=== PATIENT | female | born 1995 | race Caucasian/White ===

== ENCOUNTER 2017-05-16 03:52 | Emergency (ER) | payer BC, OTHER ==
[2017-05-16 04:00] VITALS: BP 126/87; PULSE 100; RESP 18; TEMP 98.2; O2SAT 94
--- NOTE | 2017-05-16 04:28 | EDPHY ---
H & P Stated Complaint: possible inhaled glass particle Time Seen by Provider: 05/16/17 04:00 HPI/ROS: Chief Complaint: Possibly inhaled foreign body HPI: 21-year-old woman states that she was smoking marijuana with her bong or earlier this morning. Patient states that she has a broken piece of glass that normally since the bottom of her bong. While she was smoking she did there is sensation is something in the back of her throat noted felt a scratchiness going down in her upper chest. She did see the usual piece of glass but is not sure if a small piece may have come off and she may have inhaled it. She has says that since that time when she breathes he sometimes feels the sensation of something moving from the center of her chest up into the back of her throat and then back down again. She has not have any pain. She has not have any cough. She has not have any hemoptysis. No nausea or vomiting. No pain. ROS: 10 point Review of Systems is negative except as noted in the HPI. PMH: Denies Social History: No smoking, occasional alcohol, occasional marijuana Family History: non-contributory Physical Exam: Gen: Awake, Alert, No Distress HEENT: Nose: no rhinorrhea Eyes: PERRLA, EOMI Mouth: Moist mucosa , normal oropharynx Neck: Supple, no JVD Chest: nontender, lungs clear to auscultation Heart: S1, S2 normal, no murmur Abd: Soft, non-tender, no guarding Back: no CVA tenderness, no midline tenderness Ext: no edema, non-tender Skin: no rash Neuro: CN II-XII intact, Sensation grossly intact, Strength 5/5 in bilateral upper and lower extremities - Personal History LMP (Females 10-55): IUD In Place Current Tetanus/Diphtheria Vaccine: Yes Current Tetanus Diphtheria and Acellular Pertussis (TDAP): Yes - Medical/Surgical History Hx Asthma: No Hx Chronic Respiratory Disease: No Hx Diabetes: No Hx Cardiac Disease: No Hx Renal Disease: No Hx Cirrhosis: No Hx Alcoholism: No Hx HIV/AIDS: No Hx Splenectomy or Spleen Trauma: No Other PMH: HERNIA, CONCUSSION X3 - Social History Smoking Status: Current some day smoker Constitutional: Initial Vital Signs Temperature (C) 36.8 C 05/16/17 03:56 Heart Rate 100 02/08/18 03:56 Respiratory Rate 18 05/16/17 03:56 Blood Pressure 126/87 H 05/16/17 03:56 O2 Sat (%) 94 05/16/17 03:56 O2 Delivery Mode Room Air Allergies/Adverse Reactions: Sulfa (Sulfonamide Antibiotics) Allergy (Verified 07/16/14 03:23) Home Medications: Medication Instructions Recorded Adderall 20 mg (RX) 07/16/14 Medical Decision Making ED Course/Re-evaluation: 21-year-old woman who believes she may have inhaled a glass foreign body will smoking or bone. She has not had any cough or hemoptysis. She is currently symptom free. States she is occasionally get the sensation of something moving from behind her sternum up to the back of her throat and back down again. I explained that this is unlikely a foreign object does it would not likely past above and below the vocal cords and if she had aspirated foreign body it would of remain lodged at the base of her lungs. I do not feel chest x-ray is going to be particularly useful at this time as if she has an held something it would be so small as not to be visible in the normal lung joyce. Plan will be to discharge her with a referral for pulmonology if she continues to have any symptoms. She started developing hemoptysis, worsening cough, fevers, chills, or any other concerns she will return here otherwise follow up with pulmonology for any other complaints. Departure - Departure Disposition: Home, Routine, Self-Care Clinical Impression: Throat pain Condition: Good Instructions: Foreign Body Ingestion (ED) Additional Instructions: Follow up with a site safety coordinator if you have worsening cough, blood-tinged sputum , fevers, chills, worsening productive cough, or any other concerns. Referrals: Yesica Nash MD [Primary Care Provider] - As per Instructions Sunil Duron MD [Medical Doctor] - As per Instructions
== END 2017-05-16 04:32 | disposition home or self-care (01) ==
DX: R07.0 Pain in throat (principal); F17.200 Nicotine dependence, unspecified, uncomplicated

== ENCOUNTER 2017-05-17 14:17 | Emergency (ER) | payer BC ==
[2017-05-17 14:22] VITALS: TEMP 98.2
--- NOTE | 2017-05-17 15:25 | EDPHY ---
H & P Time Seen by Provider: 05/17/17 15:12 HPI/ROS: HPI Foreign body in throat. 21-year-old female by private vehicle. She is with her friend. She reports that she was smoking marijuana through a Bong 2 nights ago. She reports that this Bong had a small piece of glass that was partially attached to the base. She reports that when she inhaled, she thinks that she inhaled this small piece of glass and it is now stuck in her lower left-sided anterior throat. She reports having a foreign body sensation which she describes as a scratchiness when she takes a deep breath. She reports that this radiates down into her chest. She has had no voice changes. No difficulty breathing. Denies fever. No cough. She was seen in the emergency department yesterday morning at 4:00 a.m. for this. She was discharged without imaging or further workup. ROS: Constitutional: No fever, no chills. No weakness. Eyes: No discharge. No changes in vision. ENT: No sore throat. No nasal congestion or rhinorrhea. As above. Respiratory: No cough. No shortness of breath. As above. Cardiac: As above, no palpitations. Gastrointestinal: No abdominal pain, no vomiting, no diarrhea. Musculoskeletal: No back pain. No neck pain. No myalgias or arthralgias. Skin: No rashes. Neurological: No headache. No focal weakness or altered sensation. Past medical history: Abdominal hernia, IUD in place, concussion x3. Social history: Student [employer]. Here with her friend. Smokes marijuana. Does not smoke cigarettes. Physical Exam: General Appearance: Alert, no distress. This patient is responding to questions appropriately and in full sentences. This patient appears well- hydrated and well-nourished. Eyes: Pupils equal and round no pallor or injection. No lid edema, erythema or injection. ENT, Mouth: Mucous membranes are moist. The pharyngeal tissues are unremarkable. No edema or swelling. No asymmetry suggestive of abscess. No erythema or exudates. No cervical, submandibular, submental lymphadenopathy. No voice changes. No stridor on auscultation of her neck. Respiratory: There are no retractions, lungs are clear to auscultation with good air movement bilaterally. Cardiovascular: Regular rate and rhythm. No murmur. Neurological: Motor sensory function is grossly intact. Cranial nerves are normal. Gait is normal. Skin: Warm and dry, no rashes. Musculoskeletal: Neck is supple and nontender on palpation of the soft tissues. No pain on flexion of the neck. Extremities are symmetrical. All joints range without pain or impingement. Psychiatric: No agitation. No depression. Database: EKG: Imaging: Soft tissue neck x-ray series: No radiopaque foreign body or other abnormality. Interpreted by me and reviewed with staff radiologist. Chest x-ray PA and lateral; the cardiac mediastinal silhouette is unremarkable. No evidence of infiltrate or pneumothorax. No acute cardiopulmonary disease process noted. No radiopaque foreign body. Interpreted by me and reviewed with staff radiologist. Procedures: Emergency department course: Vital signs reviewed and are normal. Discussed imaging as noted above. Patient consents. If imaging is unremarkable, we will set patient up for evaluation by ENT and endoscopy. 5:00 p.m., spoke with [facility] ENT physician social media assistant. She graciously agreed to come to the emergency department and scope this patient. No upper airway abnormalities or foreign body noted. No pathology seen. 6:10 p.m., the patient was re-evaluated. Resting comfortably at this time. She has not had any stridor difficulty breathing throughout her emergency department course. No voice changes. I discussed the evaluation by ENT with her. Plan will be to have her follow up with pulmonology on Saturday for re- evaluation and possible bronchoscopy. She feels comfortable going home and I feel she is safe for discharge. Return to emergency department precautions were reviewed with her. She can easily return here if needed. All of her questions were answered. She was discharged in good condition with her friend. Differential Diagnosis: The differential diagnosis on this patient includes but is not limited to possible tracheal, airway foreign body, esophageal tissue inflammation from swallowed foreign body. This represents a partial list of diagnoses considered. These considerations are based on history, physical exam, past history, reassessment and diagnostic testing. Smoking Status: Current some day smoker Constitutional: Initial Vital Signs Temperature (C) 36.8 C 05/17/17 14:19 Heart Rate 81 05/17/17 14:19 Respiratory Rate 18 05/17/17 14:19 Blood Pressure 114/90 H 05/17/17 14:19 O2 Sat (%) 97 05/17/17 14:19 O2 Delivery Mode Room Air Allergies/Adverse Reactions: Sulfa (Sulfonamide Antibiotics) Allergy (Verified 07/16/14 03:23) Home Medications: Medication Instructions Recorded Adderall 20 mg (RX) 07/16/14 Medical Decision Making - Diagnostics Imaging Results: Imaging Impressions Chest X-Ray 05/17/17 15:18 Impression: No evidence for aspirated radio opaque foreign material or pneumonia. Soft Tissue Neck X-Ray 05/17/17 15:18 Impression: Negative for airway radio-opaque foreign material. Departure - Departure Disposition: Home, Routine, Self-Care Clinical Impression: Possible upper airway foreign body Condition: Good Instructions: Foreign Body Ingestion (ED) Additional Instructions: Read and follow provided instructions. Follow-up with pulmonology as discussed on Saturday for re-evaluation and further management. I gave you two referral options. Call their office at 9:00 a.m. on Saturday morning. Return to the emergency department for worsening symptoms, pain, difficulty breathing, stridor, voice changes, worsening cough or other serious concerns. Referrals: Sunil Duron MD [Medical Doctor] - As per Instructions Sunil Whittaker MD [Medical Doctor] - As per Instructions Stand Alone Forms: School Excuse
--- NOTE | 2017-05-17 17:51 | PDCONSULT ---
Brokerage Office Manager Note: HPI: This 21 year old female presetned to ER after smoking marijuana through a bong 2 nights ago. She reports piece of bong got stuck in her throat. She feels it is stuck in left anterior chest windpipe/chest. It is noticeable when she takes a deep breath. No dyspnea. No dysphagia. ROS otherwise negative. For full history see ED note. Physical exa: She is alert, in no distress. Vital signs are stable. EOMs intact. PERRL. She is breathing and speaking without issues. Laryngoscopy reveals normal nasal exam. Nasopharynx clear. Larynx and base of tongue clear. Good VC movement. Excellent airway. The very top portion of trachea clear. ENT exam otherwise unremarkable. Skin without raises. She is alert, oriented. Chest Xray reviewed, unremarkable. Assessment/Plan: 21 year old female with possible airway foreign body. I reassured her that her upper airway is clear. However, I was not able to see past larynx and she is complaining of sensation below the larynx. I reviewed with patient and Dr. Sorensen. She may benefit from further imaging vs pulmonary consultation for lower airway foreign body.
[2017-05-17 18:24] VITALS: BP 131/88; PULSE 85; RESP 16; O2SAT 98
== END 2017-05-17 18:23 | disposition home or self-care (01) ==
DX: Z03.89 Encounter for observation for other suspected diseases and conditions ruled out (principal); F17.200 Nicotine dependence, unspecified, uncomplicated

== ENCOUNTER 2018-01-11 15:30 | Emergency (ER) | payer BC ==
[2018-01-11 15:36] VITALS: BP 137/94
[2018-01-11] MEDS ORDERED: IBUPROFEN 600 MG TAB PO ONE (15:45)
--- NOTE | 2018-01-11 15:47 | EDPHY ---
H & P Time Seen by Provider: 01/11/18 15:38 HPI/ROS: CHIEF COMPLAINT: Right shoulder injury HISTORY OF PRESENT ILLNESS: Patient found out just this afternoon that her mother killed herself, the patient became very upset and was banging both hands on the dashboard and about 45 min prior to arrival she injured her right shoulder. She says it feels like it is "in front" and can't move it very well. Much worse pain with motion or palpation. She does not have associated weakness or numbness in the right arm or hand. REVIEW OF SYSTEMS: Apart from being understandably very upset about her mother , negative PAST MEDICAL HISTORY: Hernia and concussion Social history: Here with her father General Appearance: Alert and conversant, cooperative. Right shoulder shows an AC step-off but normal clavicle and otherwise normal skin. Sensation intact on both axillary nerves bilaterally in both deltoids. Normal right radial pulse and motor and sensory in the right hand. Limited ROM secondary to pain. Emergency Department course/MDM: One-view x-ray shows anterior dislocation. Procedure: Dislocation reduction. Indication: Dislocation of the right glenohumeral joint. Risks, benefits, alternatives discussed with the patient including but not limited to fracture, nerve or blood vessel injury, and consent obtained. A time -out was completed. The shoulder was reduced in the usual fashion scapular manipulation without complications. Post reduction the patient's neurovascular exam is normal. Post reduction x-ray demonstrates reduction of the joint to the anatomic position. Still has normal neurovascular function, including sensation over the deltoid and motor and sensory in the hand. The procedure was performed by myself. Oral ibuprofen 600 and sling. Discussed 11 Percocet, patient denies SI or history of any overdose in the past. She says she may be moving back home out of [place], will discharge with her x- rays. 1555: Diagnosis results and follow-up discussed with the father in the room. Smoking Status: Current some day smoker Constitutional: Initial Vital Signs Temperature (C) 36.7 C 01/11/18 15:33 Heart Rate 133 H 01/11/18 15:33 Respiratory Rate 28 H 01/11/18 15:33 Blood Pressure 137/94 H 01/11/18 15:33 O2 Sat (%) 99 01/11/18 15:33 O2 Delivery Mode Room Air Allergies/Adverse Reactions: Sulfa (Sulfonamide Antibiotics) Allergy (Verified 07/16/14 03:23) Home Medications: Medication Instructions Recorded Adderall 20 mg (RX) 07/16/14 oxyCODONE/APAP 5/325 [Percocet] 1 tab PO Q4-6PRN PRN #11 tab 01/11/18 MDM/Departure - MDM Imaging Results: Initial x-ray one view shows anterior shoulder dislocation. Post reduction x-ray shows good reduction, no fracture. Imaging: I viewed and interpreted images myself Medications Given: Discontinued Medications Ibuprofen (Motrin) 600 mg PO EDNOW ONE Stop: 01/11/18 15:46 Last Admin: 01/11/18 15:48 Dose: 600 mg - Depart Disposition: Home, Routine, Self-Care Clinical Impression: Anterior shoulder dislocation Qualifiers: Encounter type: initial encounter Laterality: right Qualified Code(s): S43.014A - Anterior dislocation of right humerus, initial encounter Condition: Good Instructions: Shoulder Dislocation (ED) Additional Instructions: Limited use of right shoulder. Please wear the sling until you see Orthopedics in follow-up (mandatory). Bring the computer disc with the x-rays on it to your follow-up appointment. Try to avoid lifting your arm over your head or you may have a recurrent dislocation. Prescriptions: oxyCODONE/APAP 5/325 [Percocet] 1 tab PO Q4-6PRN PRN #11 tab PRN Reason: Pain Referrals: Yesica Nash MD [Primary Care Provider] - As per Instructions Herminio Messer MD [Medical Doctor] - 5-7 days, call for appt.
== END 2018-01-11 16:03 | disposition home or self-care (01) ==
PROC: 0RSJXZZ Reposition Right Shoulder Joint, External Approach (ICD-10-PCS; principal; 2018-01-11)
DX: S43.014A Anterior dislocation of right humerus, initial encounter (principal); F17.200 Nicotine dependence, unspecified, uncomplicated; W22.8XXA Striking against or struck by other objects, initial encounter; Y92.9 Unspecified place or not applicable; Y99.9 Unspecified external cause status; Y93.9 Activity, unspecified
CPT/HCPCS: A4565

== ENCOUNTER → 2018-09-10 | Outpatient (CLI) | payer BC | LOC: BMCIMAGING 12:14 ==